=== PATIENT | male | born 1945 | race Caucasian/White ===

== ENCOUNTER → 2017-01-13 19:46 | Outpatient (CLI) | payer MEDICARE | END | disposition home or self-care (01) | LOC: D.LABREF 19:46 | DX: N40.1 Benign prostatic hyperplasia with lower urinary tract symptoms (principal) ==

== ENCOUNTER → 2018-01-12 09:01 | Outpatient (CLI) | payer MEDICARE, BC | END | disposition home or self-care (01) | LOC: D.LAB 09:01 | DX: N40.0 Benign prostatic hyperplasia without lower urinary tract symptoms (principal) ==

== ENCOUNTER 2019-02-12 08:50 | Day surgery (SDC) | payer MEDICARE, BC ==
[2019-02-11 14:16] LABS: HEMATOCRIT 40.2 % (42.0-54.0); HEMOGLOBIN 14.2 g/dL (13.5-17.5); MCH 31.1 pg (26.0-34.0); MCHC 35.3 g/dL (31.0-37.0); MEAN PLATELET VOLUME 10.1 fL (7.4-10.4); RBC 4.57 10x6/uL (4.20-6.10); RDW 12.8 % (11.5-14.5); WBC 7.3 10x3/uL (4.8-10.8)
[~2019-02-12 08:50] MED LIST: ADVIL PM PO; ATIVAN0.5 MG PO; AZO PO; BAYER CHEWABLE81 MG PO; CELEBREX200 MG PO; LIPITOR20 MG PO; LYRICA50 MG PO; PROSCAR5 MG PO; STOOL SOFTENER100 M1 PO
[2019-02-12 13:00] VITALS: BP 159/80; BMI 29.9
--- NOTE | 2019-02-12 16:30 | OP ---
PATIENT NAME: VALERIE LOVE MEDICAL RECORD: [id number] :49 [facility] AD[facility] DATE: SURGEON: DUGLAS TOLEDO MD DATE OF OPERATION: 02/12/2019 SURGEON: Duglas Toledo MD ANESTHESIA: TIVA by Karoline Higgins CRNA. DIAGNOSES: Obstructive BPH with bladder neck stenosis. The patient on finasteride and Flomax. PSA is 0.28. WEN shows 30 grams prostate. IPSS core is 8 and quality of life score is 3 on finasteride and Flomax. PROCEDURE: UroLift times 4 in box configuration. FINDINGS: Bladder neck stenosis was nonobstructive lateral lobes. Single ureteral orifices bilaterally, moderately trabeculated bladder. No bladder tumors. ESTIMATED BLOOD LOSS: None. CLINICAL HISTORY: This is a 73-year-old male with obstructive BPH. He has been on finasteride and tamsulosin for 1 year. His PSA is low at 0.28. He has some postvoid dribbling at night. Otherwise, his flow is good with the medications. He wishes to have the UroLift procedure done to get off the medications. He is not allergic to any medications. He was given [employer] employee relations advisor to the OR. DESCRIPTION OF PROCEDURE: The patient was given IV sedation. He was placed in lithotomy position and prepped and draped. The UroLift scope was introduced. The penile urethra shows no strictures. Prostatic urethra is actually open. The site of obstruction is the bladder neck. Going into the bladder, no bladder tumors were seen. We decided to place the UroLift units times 4 in the box configuration around the bladder neck to open up the bladder neck. Two units were placed on the anterolateral surface of the lateral lobe of the prostate. This was placed 1.5 cm distal to the bladder neck and 1 unit, was placed on each side. Then, at the same distance from the bladder neck, but at the mid urethral level, we placed 2 more units, 1 on each side. This resulted in 4 units implanted. The bladder neck was nicely opened up by this. The bladder was left apparently full for a voiding trial. I will see the patient in followup in 1 month's time. TRANSINT:[id number] Voice Confirmation ID: [id number] DOCUMENT ID: [id number] DUGLAS TOLEDO MD at 1630 CC: [id number] DICTATION DATE: 02/12/19 1510 MANAGER DELI: 02/12/19 1555 [facility] [address] [id number]
--- NOTE | 2019-02-12 16:35 | NUR ---
DC INSTRUCTIONS GIVEN TO PT. STATES UNDERSTANDING.
--- NOTE | 2019-02-12 16:55 | NUR ---
PT NOTED DRIBBLING BUT NO STEADY STREAM. BLADDER SCANNER USED. 376 ML NOTED. IV FLUIDS RUNNING AND PT DRINKING WATER AT THIS TIME.
--- NOTE | 2019-02-12 18:45 | NUR ---
1630 RECIEVED REPORT FROM SHAMIR FISCHER. PT UNABLE TO URINATE. BLADDER SCAN DONE. IVF GIVEN AND PT DRINKING FLUIDS WELL. 1700 ORNELAS INSERTED WITHOUT DIFFICULTY AND BARI URINE WITHOUT ANY CLOTS NOTED. PT HAS RELIEF. STAT LOCK ON LEG. 1800 ORNELAS CONVERTED TO LEG BAG AND INSTRUCTIONS GIVEN TO AND PT, SUPPLIES GIVEN. 1815 IV REMOVED PT DISCHARGED HOME IN W/C WITH LARGE CUP OF WATER IN HAND
== END 2019-02-12 18:30 | disposition home or self-care (01) ==
LOC: D.OPS 08:50 → D.PAN 12:15 → D.OPS 14:00
PROVIDERS: Anesthesiology; ATTEND Urology
DX: N32.0 Bladder-neck obstruction (principal); N32.89 Other specified disorders of bladder; Z01.812 Encounter for preprocedural laboratory examination

== ENCOUNTER 2019-02-13 22:27 | Emergency (ER) | payer MEDICARE, BC ==
[~2019-02-13] VITALS: Ht 190.5 cm; Wt 106.8 kg
[2019-02-13 22:53] VITALS: Ht 190.5 cm; Wt 106.8 kg
[2019-02-14 02:23] VITALS: BP 153/87
== END 2019-02-14 02:24 | disposition home or self-care (01) ==
LOC: D.ER 22:27
DX: T83.018A Breakdown (mechanical) of other urinary catheter, initial encounter (principal)